=== PATIENT | female | born 1940 | race Caucasian/White ===

== ENCOUNTER → 2018-10-13 | Outpatient (CLI) | payer OTHER, MEDICAID ==
--- NOTE | 2018-10-13 13:57 | PCVCIMAG ---
APPROVED REPORT Study performed: 10/13/2018 11:30:51 EXAM: Comprehensive 2D, Doppler, and color-flow Echocardiogram Patient Location: Echo lab Room #: 2Status: routine BSA: 2.05 HR: 75 bpmBP: 134/86 mmHg Rhythm: NSR Other Information Study Quality: Fair Risk Factors: Cardiac Risk Factors: HTN, Hyperlipidemia Indications Pre-Op Dyspnea Hypertension/HDD 2D Dimensions IVSd: 12.79 (7-11mm)LVOT Diam: 20.89 (18-24mm) LVDd: 34.82 mm PWd: 10.32 (7-11mm)Ascending Ao: 26.17 (22-36mm) LVDs: 21.46 (25-40mm) Left Atrium: 40.31 (27-40mm) Aortic Root: 27.50 mm LV Single Plane 4CH: 70.60 % LV Single Plane 2CH: 72.95 % Biplane EF: 74.6 % Volumes Left Atrial Volume (Systole) Single Plane 4CH: 26.05 mLSingle Plane 2CH: 36.99 mL Biplane LA Volume: 32.00 mLLA ESV Index: 16.00 mL/m2 Aortic Valve AoV Peak Rhys.: 1.43 m/s AO Peak Gr.: 8.19 mmHgLVOT Max P.67 mmHg LVOT Max V: 0.96 m/s SEGUNDO Vmax: 2.29 cm2 Mitral Valve E/A Ratio: 0.7 MV Decel. Time: 277.51 ms MV E Max Rhys.: 0.71 m/s MV A Rhys.: 1.06 m/s IVRT: 107.27 ms TDI E/Lateral E': 17.75E/Medial E': 14.20 Medial E' Rhys.: 0.05 m/s Lateral E' Rhys.: 0.04 m/s Pulmonary Vein P Vein S: 0.36 m/sP Vein A: 0.29 m/s P Vein D: 0.35 m/sP Vein A Dur.: 117.6 msec P Vein S/D Ratio: 1.03 Tricuspid Valve TR Peak Rhys.: 1.32 m/s TR Peak Gr.: 6.95 mmHg TV Vmax: 0.55 m/sPA Pressure: 14.00 mmHg Left Ventricle The left ventricle is normal size. There is normal LV segmental wall motion. Mild concentric left ventricular hypertrophy. Left ventricular systolic function is normal. The left ventricular ejection fraction is within the normal range. LVEF is >70%. Grade I - abnormal relaxation pattern. Findings suggest the left atrial pressure is elevated. Right Ventricle The right ventricle is normal size. The right ventricular systolic function is normal. Atria The left atrium size is normal. The right atrium size is normal. Aortic Valve Aortic valve is not well visualized. Aortic valve is probably trileaflet. No aortic regurgitation is present. There is no aortic valvular stenosis. Mitral Valve The mitral valve is normal in structure. There is no mitral valve regurgitation noted. No evidence of mitral valve stenosis. Tricuspid Valve The tricuspid valve is normal in structure. Trace tricuspid regurgitation. No apparent pulmonary hypertension. Pulmonic Valve The pulmonic valve is not well seen. There is no pulmonic valvular regurgitation. Great Vessels The aortic root is normal in size. The ascending aorta is normal in size. Aortic arch is normal in caliber. IVC is normal in size and collapses >50% with inspiration. Pericardium There is no pericardial effusion. There is no pleural effusion. <Conclusion> The left ventricle is normal size. Mild concentric left ventricular hypertrophy. LVEF is >70%. Grade I - abnormal relaxation pattern. Findings suggest the left atrial pressure is elevated. The right ventricle is normal size. The left atrium size is normal. The right atrium size is normal. Aortic valve is not well visualized. Aortic valve is probably trileaflet. There is no aortic valvular stenosis. There is no mitral valve regurgitation noted. Trace tricuspid regurgitation. No apparent pulmonary hypertension. The aortic root is normal in size. There is no pericardial effusion.
== END | disposition home or self-care (01) ==
LOC: PCVCIMAG 11:04
PROVIDERS: ATTEND Internal Medicine Cardiovascular Disease
DX: Z01.818 Encounter for other preprocedural examination (principal); R06.09 Other forms of dyspnea; I10 Essential (primary) hypertension; I67.1 Cerebral aneurysm, nonruptured; E78.00 Pure hypercholesterolemia, unspecified; I65.29 Occlusion and stenosis of unspecified carotid artery; E78.5 Hyperlipidemia, unspecified
CPT/HCPCS: 93306; 93880

== ENCOUNTER → 2018-10-13 | Outpatient (CLI) | payer OTHER, MEDICAID | END | disposition home or self-care (01) | LOC: PCVCCLINIC 11:51 | PROVIDERS: ATTEND Internal Medicine Cardiovascular Disease | DX: I10 Essential (primary) hypertension (principal); E78.00 Pure hypercholesterolemia, unspecified; I67.1 Cerebral aneurysm, nonruptured; I65.29 Occlusion and stenosis of unspecified carotid artery; Z82.49 Family history of ischemic heart disease and other diseases of the circulatory system; Z79.82 Long term (current) use of aspirin | CPT/HCPCS: 36415; 80061; 93005; G0463 ==

== ENCOUNTER → 2018-10-16 | Outpatient (CLI) | payer OTHER, MEDICAID ==
[~2018-10-16] MED LIST: REGADENOSON 0.4 MG/5 ML DISP.SYRIN. IV ONE
--- NOTE | 2018-10-16 17:24 | PCVCIMAG ---
APPROVED REPORT Imaging Protocol: Rest Tc-99m/Stress Tc-99m 1 day Study performed: 10/16/2018 09:23:42 Indication: Dyspnea, Pre-Operative CV evaluation Patient Location: Out-Patient Stress Nurse: Amina Gold RN, Amita Juarez RN [place] Tech:Pamela CanGLENN leosMT Ht: 5 ft 3 in Wt: 229 lbs BSA: 2.05 m2 HR: 71 bpm BP: 188/84 mmHg BMI: 40.5 Rhythm: Sinus Rhythm Medical History Medical History: HTN, Hyperlipidemia, CVD Medications: ASA, Atorvastatin, Gabapentin, Tramadol Allergies: Tape, Macrodantin Cardiac Risk Factors: Age, FHX of CAD Pretest Chest Pain Characteristics: No chest pain Exercise History: Sedentary Physical Disabilities: Knees Resting Data Rest SPECT myocardial perfusion imaging was performed in supine position 45 minutes following the intravenous injection of 13.6 mCi of Tc-99m Sestamibi. Time of rest injection: 0840 Date: 10/16/2018 Administration Route: IV Administration Site: Right AC Pharmacologic Stress Pharmacologic stress test was performed by injecting Regadenoson 0.4 mg IV push over 10-15 seconds immediately followed by the intravenous injection of 43.1 mCi of Tc-99m Sestamibi. Time of stress injection: 1000 Date: 10/16/2018 Administration Route: IV Administration Site: Right AC Gated Stress SPECT was performed 45 minutes after stress injection. The images were gated to evaluate regional wall motion and calculate left ventricular ejection fraction. Stress Test Details Stress Test: Pharmacologic stress testing performed using 0.4 mg of regadenoson per 5 mL given IV over 10 seconds. Reason for pharmacologic stress test: uses a walker. HRMax Heart Rate (APMHR): 143 bpm Resting HR: 71 bpmTarget HR (85% APMHR): 121 bpm Max HR Achieved: 83 bpm % of APMHR: 58 Recovery HR: 74 bpm BP Resting BP: 188/84 mmHg Max BP: 186/79 mmHg Recovery BP: 154/68 mmHg ECG Resting ECG: Sinus Rhythm Stress ECG: Sinus Rhythm Recovery ECG: Sinus Rhythm Clinical Reason for Termination: Completed protocol Stress Symptoms: Lightheaded Exercise duration: 0 min 55 sec Symptoms resolved with caffeine. Stress ECG Conclusion ECG: Non-ischemic Study Quality Study: Good Study Data Post stress, the left ventricular ejection was 76%.. SSS: 0 SRS: 5 SDS: 0 TID = 1.12. Perfusion No evidence of stress induced ischemia or prior myocardial infarction. Wall Motion Normal left ventricular size and function with no regional wall motion abnormalities. Nuclear Conclusion No evidence of stress induced ischemia or prior myocardial infarction. Normal left ventricular size and function with no regional wall motion abnormalities. Post stress, the left ventricular ejection was 76%. No prior study available for comparison. Interpreted by: Carlos Bauman MD Electronically Approved: 10/16/2018 13:16:56 <Conclusion> ECG: Non-ischemic
== END | disposition home or self-care (01) ==
LOC: PCVCIMAG 08:15
PROVIDERS: ATTEND Internal Medicine Cardiovascular Disease
DX: Z01.810 Encounter for preprocedural cardiovascular examination (principal); R06.00 Dyspnea, unspecified; I10 Essential (primary) hypertension; E78.00 Pure hypercholesterolemia, unspecified; R06.09 Other forms of dyspnea; E78.5 Hyperlipidemia, unspecified; Z82.49 Family history of ischemic heart disease and other diseases of the circulatory system
CPT/HCPCS: 78452; 93017; A9500; J2785

== ENCOUNTER → 2019-05-28 | Outpatient (CLI) | payer OTHER, MEDICAID | END | disposition home or self-care (01) | LOC: PCVCCLINIC 12:38 | PROVIDERS: ATTEND Internal Medicine Cardiovascular Disease | DX: Z01.818 Encounter for other preprocedural examination (principal); E78.00 Pure hypercholesterolemia, unspecified; I10 Essential (primary) hypertension; I67.1 Cerebral aneurysm, nonruptured; I65.23 Occlusion and stenosis of bilateral carotid arteries; Z88.1 Allergy status to other antibiotic agents; Z91.048 Other nonmedicinal substance allergy status | CPT/HCPCS: 36415; 80061; 93005; G0463 ==

== ENCOUNTER → 2019-05-28 | Outpatient (CLI) | payer OTHER, MEDICAID ==
--- NOTE | 2019-05-28 13:13 | PCVCIMAG ---
EXAM: LEFT LOWER EXTREMITY ARTERIAL DUPLEX INDICATION: Peripheral Arterial Disease. Leg pain. FINDINGS: Left Leg: Satisfactory arterial waveforms throughout the common/profunda/superficial femoral, popliteal, anterior tibial, peroneal, and posterior tibial arteries. No flow limiting stenosis seen. IMPRESSION: No flow limiting stenosis in the left lower extremity. Incidental note is made of a 4.1 x 5.7 cm left popliteal cyst. LOC:[id number]
== END | disposition home or self-care (01) ==
LOC: PCVCIMAG 11:31
PROVIDERS: ATTEND Internal Medicine Cardiovascular Disease
DX: Z01.818 Encounter for other preprocedural examination (principal); I73.9 Peripheral vascular disease, unspecified
CPT/HCPCS: 93926